=== PATIENT | female | born 1970 | race Caucasian/White ===

== ENCOUNTER 2020-02-27 20:07 | Emergency (ER) | payer OTHER ==
[~2020-02-27] VITALS: Ht 154.9 cm; Wt 61.7 kg
[~2020-02-27 20:07] MED LIST: LOSA50TA14 PO
[2020-02-27] MEDS ORDERED: HYDROmorphone 1 MG/ML, 1ML INJ ONE (20:53)
[2020-02-27] MEDS ORDERED: ONDANSETRON 2MG/ML, 2ML ONE (20:54)
[2020-02-27] MEDS ORDERED: SODIUM CHLORIDE FLUSH 10ML SYR IVF ONE (21:00)
[2020-02-27] MEDS ORDERED: HYDROmorphone 2 MG/ML, 1ML IVPush PRN (21:00)
[2020-02-27] MEDS ORDERED: ONDANSETRON 2MG/ML, 2ML IVPush ONE (21:00)
[2020-02-27 21:34] LABS: BASOPHILS # (AUTO) 0.07 x10^3/uL (0-0.1); BASOPHILS % (AUTO) 1 % (0-1); EOSINOPHILS # (AUTO) 0.22 x10^3/uL (0-0.4); EOSINOPHILS % (AUTO) 3 % (1-7); LYMPHOCYTES % (AUTO) 37 % (22-44); MD NO; MEAN CORPUSCULAR HEMOGLOBIN 32.1 pg (27.0-34.8); MEAN CORPUSCULAR HGB CONC 33.8 g/dL (32.4-35.8); MEAN CORPUSCULAR VOLUME 94.8 fL (80-100); MEAN PLATELET VOLUME 8.3 fL (7.4-10.4); MONOCYTES # (AUTO) 0.45 x10^3/uL (0.2-0.8); MONOCYTES % (AUTO) 6 % (2-9); NEUTROPHILS # (AUTO) 3.69 x10^3/uL (1.8-6.8); NEUTROPHILS % (AUTO) 53 % (42-75); PLATELET COUNT 239 x10^3/uL (130-400); RED BLOOD COUNT 4.67 x10^6/uL (3.82-5.3); RED CELL DISTRIBUTION WIDTH 13.2 % (9.6-15.2)
[2020-02-27] MEDS ORDERED: DIAZEPAM 5 MG/ML, 2ML ONE (21:35)
[2020-02-27 21:38] LABS: ALBUMIN 3.9 g/dL (3.4-5.0); ANION GAP 5 mmol/L (5-15); CALCIUM 8.4 mg/dL (8.5-10.1); CHLORIDE 112 mmol/L (98-107); CREATININE 0.65 mg/dL (0.55-1.02)
[2020-02-27] MEDS ORDERED: DIAZEPAM 5 MG/ML, 2ML IV ONE (22:00)
--- NOTE | 2020-02-27 22:13 | NUR ---
PT BP HAS IMPROVED. PT UP FOR RECHECK AT THIS TIME
--- NOTE | 2020-02-27 22:13 | NUR ---
LATE ENTRY: PT CAME IN CO OF "NERVE PAIN". PT FOUND TO BE HYPERTENSIVE IN TRIAGE. EKG COMPELTE. PT MEDICATED PER SEP. REPORTS PAIN IMPROVEMENT Addendum: 02/27/20 at 2214 by NIKO PT DENIES HAVING HX OF HYPERTENSION AND SAYS SHE DOES NOT TAKE MEDICATION FOR HTN
[2020-02-27 22:40] VITALS: BP 172/77
== END 2020-02-27 22:47 | disposition home or self-care (01) ==
LOC: ED 22:10
DX: M54.41 Lumbago with sciatica, right side (principal); R07.9 Chest pain, unspecified; R94.31 Abnormal electrocardiogram [ECG] [EKG]
CPT/HCPCS: 36415; 71045; 80048; 82040; 85025; 93005; 96374; 96375; 99285; J1170; J2405; J3360